=== PATIENT | female | born 1970 | race Caucasian/White ===

== ENCOUNTER 2023-07-10 09:17 | Day surgery (SDC) | payer OTHER ==
[~2023-07-10] VITALS: Ht 160 cm; Wt 78.9 kg
[~2023-07-10 09:17] MED LIST: OMEPRAZOLE DR40 MG PO
[2023-07-10] MEDS ORDERED: FAMOTIDINE 10MG/ML 2ML SDV IV ONE (09:58)
[2023-07-10] MEDS ORDERED: LACTATED RINGER'S 1,000 ML IV ONE (09:59)
[2023-07-10 11:30] VITALS: BP 106/72
[2023-07-10] MEDS ORDERED: LIDOCAINE HCL 2% 2ML SDV IV ONE (13:46)
[2023-07-10] MEDS ORDERED: PROPOFOL 200 MG/20 ML VIAL IV ONE (13:46)
[2023-07-10] MEDS ORDERED: GLYCOPYRROLATE 0.2 MG/ML IV ONE (13:46)
== END 2023-07-10 11:51 | disposition home or self-care (01) | DRG 392 ==
LOC: ENDO 09:17 → ORM 11:15 → ENDO 11:51 → ORM 12:00 → ENDO 12:50 → ORM 12:50
PROVIDERS: ATTEND Internal Medicine Gastroenterology
PROC: 0DB98ZX Excision of Duodenum, Via Natural or Artificial Opening Endoscopic, Diagnostic (ICD-10-PCS; principal; 2023-07-10)
PROC: 0DB78ZX Excision of Stomach, Pylorus, Via Natural or Artificial Opening Endoscopic, Diagnostic (ICD-10-PCS; 2023-07-10)
PROC: 0DB28ZX Excision of Middle Esophagus, Via Natural or Artificial Opening Endoscopic, Diagnostic (ICD-10-PCS; 2023-07-10)
PROC: 0DB38ZX Excision of Lower Esophagus, Via Natural or Artificial Opening Endoscopic, Diagnostic (ICD-10-PCS; 2023-07-10)
PROC: 0D738ZZ Dilation of Lower Esophagus, Via Natural or Artificial Opening Endoscopic (ICD-10-PCS; 2023-07-10)
DX: K22.2 Esophageal obstruction (principal); K29.70 Gastritis, unspecified, without bleeding; K31.9 Disease of stomach and duodenum, unspecified